=== PATIENT | female | born 2000 | race Asian ===

== ENCOUNTER 2023-12-25 08:33 | Outpatient (REF) | payer OTHER, SELFPAY ==
--- NOTE | ~2023-12-25 | US_ITS ---
EXAMINATION: US PELVIS CLINICAL INFORMATION: Irregular menses. COMPARISON: None available. TECHNIQUE: Ultrasound of the pelvis is performed using both transabdominal and transvaginal transducers along with Doppler. Transvaginal imaging is performed due to inadequate visualization transabdominally. FINDINGS: Uterus: The uterus is anteverted and measures 8.1 x 4.4 x 5.4 cm. Possible arcuate morphology. The myometrium is heterogeneous which could be related to adenomyosis. Endometrial stripe measures 11 mm. No discrete endometrial lesion. Adnexa: The ovaries are not well visualized but appear grossly normal. The right ovary measures 5 mL in the left ovary measures 10 mL No free fluid. US/US pelvic and transvaginal IMPRESSION: Heterogeneous myometrium may indicate adenomyosis. Endometrial stripe measures 11 mm. No visible endometrial lesion.
== END 2023-12-25 08:34 | disposition home or self-care (01) ==
LOC: HO.UMASIMG 08:33
PROVIDERS: Visit Provider Nurse Practitioner Family
DX: N92.6 Irregular menstruation, unspecified (principal)
CPT/HCPCS: 76830; 76856